=== PATIENT | male | born 2000 | race Caucasian/White ===

== ENCOUNTER 2021-11-23 19:48 | Emergency (ER) | payer BC, SELFPAY ==
[2021-11-23 19:49] VITALS: BP 127/83; PULSE 85; RESP 16; TEMP 36.4; O2SAT 100; BMI 21.5
--- NOTE | 2021-11-23 20:03 | EDS_ITS ---
HPI History of Present Illness Chief Complaint: Laceration Informant: patient Occured/Mechanism Mechanism/Context: Yes injury and Yes blunt trauma Onset/Context/Timing Onset: Today and Hours Context: Sudden Onset Quality of Pain: Sharp Current Severity: Mild Maximum Severity: Mild Associated Symptoms Associated Symptoms: Negative for Parasthesia, Weakness and Loss of Funtion Narrative Narrative: 21-year-old male no significant past medical history. He is right- hand dominant. Today he got a director of placement dropped on his left small finger. Causing a laceration at the end of his left pinky finger involving the nail. No other injuries. Tetanus up-to-date Tetanus Immunization: 5-10 years Prior similar symptoms: No Recent Illness/Hospitalization: No PFSH PFSH Medical History no medical history no medical history Home Medications No Known/Unobtainable [No Known Home Medications] 04/16/14 [History Last Taken Unknown] cephalexin 500 mg PO Q6 7 Days #28 cap 11/23/21 [Rx Last Taken Unknown] Allergy/AdvReac Type Severity Reaction Status Date / Time No Known Allergies Allergy Verified 11/23/21 19:53 Social History Smoking Status: Never smoker ROS ROS ED ROS Narrative Denies recent illness. Review of Systems ROS Unobtainable: Denies due to encephalopathy Constitutional Constitutional ED: Denies fever(s) Eyes Eyes: Denies change in vision ENT ENT ED: Denies ear pain Cardiovascular Cardiovascular: Denies chest pain Respiratory/Chest Respiratory/Chest: Denies dyspnea Gastrointestinal Gastrointestinal: Denies abdominal pain Genitourinary Genitourinary ED: Denies dysuria Musculoskeletal Musculoskeletal: Denies myalgias Integumentary Denies rash Neurologic Neurologic: Denies headache(s) Psychiatric Psychiatric: Denies depression Endocrine Endocrinology: Denies polyuria Hematologic/Lymphatic Hematologic/Lymphatic: Denies easy bruising Allergic/Immunologic Allergic/Immunologic ED: Denies urticaria EXAM Physical Exam Narrative Exam Narrative: 21-year-old male no acute distress. Exam normal except left small finger distal and distal metatarsal is a significant laceration involving the nail the proximal nailbed and the distal soft tissue. He has touch sensation. There is mild oozing of blood. No pulsatile bleeding. No gross bony deformity. The rest of the hand and other digits of the hand are nontender with normal range of motion. Const Vital Signs: 04/28/22 19:49 Temperature 97.6 F L Temperature Source Temporal Pulse Rate 85 Respiratory Rate 16 Blood Pressure 127/83 H Blood Pressure Mean 97 Pulse Ox 100 Oxygen Delivery Method Room Air Positive well nourished and well developed; Negative for obese, cachectic, contractures or unkempt General Appearance ED: well developed and NAD; Negative for unkempt, cachectic, contractures, cyanotic or diaphoretic Nutritional Appearance: Negative for cachectic or obese HEENT Reports moist mucous membranes normocephalic and atraumatic Eyes PERRL and EOMs intact bilaterally Neck full ROM and supple General: Negative for tenderness Chest Wall inspection of chest normal and palpation of chest normal Resp normal respiratory effort and clear to auscultation bilaterally Effort and Inspection: Negative for pain with movement Auscultation: Negative for rales, rhonchi or wheezes Cardio regular rate, regular rhythm, S1 normal heart sound, S2 normal heart sound and no murmurs GI non-tender, non-distended and no masses Auscultation: normoactive bowel sounds Palpation: soft; Negative for tender or guarding Back/Spine no CVA tenderness General Back: Negative for CVA tenderness Cervical Spine: Negative for cervical spine tenderness Thoracic Spine / Upper Back: Negative for thoracic spinal tenderness Lumbar Spine / Lower Back: Negative for lumbar spinal tenderness Extremity normal to inspection and full ROM Extremity Narrative: Except left small finger has a laceration just proximal to the nail matrix. Going around the ulnar side and into the soft tissue on the tip of the left small finger. There is no gross bony deformity. No signs of infection or foreign body. General Extremety ED: Negative for edema General Extremity: Negative for edema Neuro oriented x3 and moves all extremities Sensorium / Orientation: alert, oriented to person, oriented to place and oriented to time; Negative for orientation impaired, lethargic or stuporous Motor Exam: strength 5/5 throughout Psych mental status grossly normal Appearance: Negative for unkempt Mood & Affect: Negative for depressed or tearful Skin Lesions: no lesions Rashes: no rashes Trauma: laceration; Negative for no lacerations or abrasions MDM MDM MDM Narrative Medical decision making narrative: 21-year-old with laceration of the left small finger at the distal end involving the nail and the distal soft tissue. X-ray to be obtained. Rule out a fracture. This will need to be repaired. Procedure note: Left small finger digital block. Once proper anesthetic was obtained the finger was cleaned thoroughly with Shsandra-Clens washed with saline irrigated with saline and explored. Closed using 5 simple interrupted 4-0 Ethilon sutures. The nail was completely removed. Proper hemostasis wound closure is obtained. Patient and family were instructed on wound care. He understands is a very good chance the nail will never grow back to the damage he did to the nail matrix. He was warned if any signs of infection seem to return. Wound care and suture removal in 14 days. Will be cleaned and dressed. They will be aluminum splint applied to the distal phalanx fracture. Procedures Lacerations Left small finger laceration: Length: 1.57 in Depth: Nail and nailbed Shape: Irregular. Prep: Sterile Conditions and Shure-Clens Laceration repair: Digital block, Irrigated, Lidocaine, Nerve block, Skin sutures and Wound explored Number of Sutures/Johnathan: 5 Suture Information: Ethilon and Simple Comment: Left small finger laceration at the distal end. Laceration begins just proximal to the nail. The nail is irregular and lifted up. The laceration goes underneath to the soft tissue on the tip of the finger around the ulnar side. Digital block. Good anesthesia. Now removed. Nailbed cleaned. Wound closed using 5 simple erupted 4-0 Ethilon sutures. Proper hemostasis wound closure obtained. Patient tolerated procedure well. Instr ucted on wound care. Discharge Plan Triage Chief Complaint: Laceration ED Provider: Wisam Abbasi Dx/Rx/DC Orders Clinical Impression: Open finger fracture, Nailbed injury Instructions: ED Fracture, Finger, Open, ED Laceration, Hand: All Closures Prescriptions: New cephalexin 500 mg capsule 500 mg PO Q6 7 Days Qty: 28 RF: 0 No Action No Known Home Medications RF: 0 Primary Care Provider: Vilma Patton Referrals: Vilma Patton DO [Primary Care Provider] - 10-14 Days suture removal Activity Restrictions/Additional Instructions: Ice and elevate to decrease pain and swelling. Motrin and Tylenol for pain. Keep our dressing on for 3 to 4 days unless it gets dirty or wet. Clean daily once she removes the dressing with soap and water and/or peroxide and water. Stitches out in 14 days. Follow-up with your doctor. Return if any signs of infection such as pus, redness, swelling, fever or streaks. Disposition Disposition: Home, Self Care
[2021-11-23] MEDS: Lidocaine 1% (20 ml mdv) 20 ML Vial INFILT (20:09)
--- NOTE | 2021-11-23 20:22 | RAD_ITS ---
EXAM: XR LEFT FINGERS, 2 OR MORE VIEWS CLINICAL INDICATION: little finger injury TECHNIQUE: Frontal, lateral and oblique views of the fingers of the left hand. This report was created using [employer] report generation technology. COMPARISON: None. FINDINGS: BONES/JOINTS: There is a fracture of the tuft of the 5th digit. There is a laceration around the tip of the digit. Open fracture cannot be excluded. Preservation of the joint space. No sclerotic or destructive changes observed. SOFT TISSUES: See above. RAD/Finger(s) Min 2 Views IMPRESSION: There is a fracture of the tuft of the 5th digit. There is a laceration around the tip of the digit. Open fracture cannot be excluded. Electronically Signed: Fadi Benedict MD at 20:48 EDT ,
[2021-11-23] MEDS: Cephalexin 250 MG Capsule 500 MG PO (21:38)
== END 2021-11-23 21:40 | disposition home or self-care (01) ==
PROVIDERS: Emergency Provider Emergency Medicine; PCP Family Medicine; Visit Provider Emergency Medicine
DX: S62.637A Displaced fracture of distal phalanx of left little finger, initial encounter for closed fracture (principal); X58.XXXA Exposure to other specified factors, initial encounter
CPT/HCPCS: 12001; 73140; 99284

== ENCOUNTER 2024-07-04 12:22 | Emergency (ER) | payer BC, SELFPAY ==
[2024-07-04 12:22] VITALS: BP 145/69; PULSE 77; RESP 16; TEMP 36.1; O2SAT 100; BMI 24.8
--- NOTE | 2024-07-04 12:31 | EX.ED.GENINJ ---
HPI History of Present Illness Chief Complaint: Laceration Informant: patient and friend Narrative Narrative: 23-year-old male presenting to the emergency room with facial laceration. 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 He had glasses on. The glasses did not break. No vision changes. No loss of conscious. He believes his tetanus to be [id number] that he believes he has had an update since his tetanus shot he would have had around a period. Tetanus Immunization: 5-10 years [facility] [place] Home Medications ?Medication ?Instructions ?Recorded ?Last Taken ?Type No Known/Unobtainable [No Known 04/16/14 Unknown History Home Medications] cephalexin 500 mg capsule 500 mg PO Q6 7 days #28 caps 11/23/21 Unknown Rx Allergy/AdvReac Type Severity Reaction Status Date / Time No Known Allergies Allergy Verified 07/04/24 12:24 Social History Smoking Status: Never smoker ROS ROS ED Constitutional Constitutional ED: Denies chills, fever(s) or weight loss Eyes Eyes: Denies change in vision or diplopia ENT ENT ED: Denies ear pain, rhinorrhea or sore throat Cardiovascular Cardiovascular: Denies chest pain, orthopnea, palpitations or racing heartbeat Respiratory/Chest Respiratory/Chest: Denies cough, dyspnea or orthopnea Gastrointestinal Gastrointestinal: Denies abdominal pain, diarrhea, nausea or vomiting Genitourinary Genitourinary ED: Denies dysuria, hematuria or urinary frequency Musculoskeletal Musculoskeletal: Denies arthralgias or myalgias Integumentary Reports other Details: Laceration ; Denies abscess or rash Neurologic Neurologic: Denies headache(s) or weakness Psychiatric Psychiatric: Denies anxiety, depression, suicidal ideation or suicidal thoughts Endocrine Endocrinology: Denies polydipsia, polyphagia or polyuria Allergic/Immunologic Allergic/Immunologic ED: Denies mouth swelling, tongue swelling or urticaria EXAM Physical Exam Const Vital Signs: 07/04/24 12:22 Temperature 97 F L Temperature Source Temporal Pulse Rate 77 Respiratory Rate 16 Blood Pressure 145/69 H Blood Pressure Mean 94 Pulse Ox 100 Oxygen Delivery Method Room Air Positive well nourished and well developed General Appearance ED: well developed and NAD HEENT Reports normocephalic and moist mucous membranes HEENT Narrative: Starting in the mid eyebrow on the left is a about 4 cm curved laceration extending up onto the forehead. Wound edges are not approximated. There is no active bleeding. He is able to wrinkle his forehead. No palpable bony depressions. No obvious orbital trauma Eyes PERRL and EOMs intact bilaterally Neck full ROM, no lymphadenopathy, supple and no JVD Resp normal respiratory effort and clear to auscultation bilaterally Cardio regular rate, regular rhythm and no murmurs GI normal to inspection, nondistended, normoactive bowel sounds and non-tender Palpation: soft Back/Spine no CVA tenderness and normal ROM Extremity normal to inspection General Extremety ED: Negative for edema General Extremity: Negative for edema Neuro oriented x3 and CN's II-XII intact bilaterally [place] Coma Scale: document GCS findings Spontaneous Obeys Commands Oriented 15 Sensorium / Orientation: alert Motor Exam: strength 5/5 throughout Psych mental status grossly normal Mood & Affect: Negative for depressed or tearful Skin no rashes or lesions noted and no wounds MDM MDM MDM Narrative Medical decision making narrative: Differential diagnosis includes but not limited to laceration contusion skull fracture neurovascular injury ocular trauma concussion intracranial hemorrhage. I do not believe advanced imaging is needed. Wound was locally anesthetized using let. He was then further anesthetized using 1% lidocaine injection at the inferior most aspect of the laceration. This provided good anesthesia. Wound was washed with Shur-Clens explored irrigated and then closed using 10 simple interrupted 5-0 Ethilon sutures. Good homeostasis and wound approximation achieved. Local wound care discussed with the patient. Stitches will need to removed in 5 to 7 days. Patient notes understanding of plan as well as future plan of minimizing scar formation. History & Record Review Discussion w/independent historian: Patient Discharge Plan Triage Chief Complaint: Laceration ED Provider: Jozef Curran Dx/Rx/DC Orders Clinical Impression: Facial laceration Instructions: ED Laceration Minimize Scars Prescriptions: No Action No Known Home Medications cephalexin 500 mg capsule 500 mg PO Q6 7 Days Qty: 28 0RF Primary Care Provider: Vilma Patton Referrals: Vilma Patton DO [Primary Care Provider] - 5 Days for suture removal (5-7 days for suture removal) Print Language: Turkish
[2024-07-04] MEDS: Lidocaine 1% (20 ml mdv) 20 ML Vial INFILT (12:46)
[2024-07-04] MEDS: Lidocaine/Epi/Tetracaine 50 ML 1 APPLIC TOPICAL (12:46)
== END 2024-07-04 13:39 | disposition home or self-care (01) ==
LOC: ED 12:38
PROVIDERS: Emergency Provider Emergency Medicine; PCP Family Medicine; Visit Provider Emergency Medicine
DX: S01.112A Laceration without foreign body of left eyelid and periocular area, initial encounter (principal); S01.81XA Laceration without foreign body of other part of head, initial encounter; X58.XXXA Exposure to other specified factors, initial encounter
CPT/HCPCS: 12013; 99283